=== PATIENT | male | born 1965 ===

== ENCOUNTER 2018-08-02 14:16 | Emergency (ER) | payer OTHER ==
[2018-08-02 14:32] VITALS: BP 157/92; PULSE 88; RESP 16; TEMP 98.7; O2SAT 98
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
== END 2018-08-02 16:32 | disposition home or self-care (01) ==
LOC: C.ER 14:16
DX: S13.4XXA Sprain of ligaments of cervical spine, initial encounter (principal); V49.40XA Driver injured in collision with unspecified motor vehicles in traffic accident, initial encounter